=== PATIENT | male | born 1990 | race Caucasian/White ===

== ENCOUNTER 2017-06-25 01:25 | Emergency (ER) | payer OTHER ==
[~2017-06-25] VITALS: Ht 188 cm; Wt 166.0 kg
[~2017-06-25 01:25] MED LIST: CYCL-331 PO; TRAM50TA PO
--- NOTE | 2017-06-25 01:29 | ED.ADGEN ---
Past History Past Medical History: High Cholesterol, Hypertension, Other Past Surgical History: Other Smoking: Less than 1pk/day Alcohol Use: Rarely Drug Use: None Adult General Chief Complaint Chief Complaint ".. I was sitting around at work.. and got really hot.. and dizzy.. 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 Patient previously followed with Dr. Dunbar and was told at that time he needed to take blood pressure meds. She's never did follow-up. And has gained approximately 100 pounds since that visit approximately 5 years ago. Patient denies any fwku-day-leuqqjb meds use. No recent travel. No specific ill contacts. Review of Systems Review of Systems Constitutional: Denies fever or chills [] Eyes: Denies change in visual acuity, redness, or eye pain [] HENT: Denies nasal congestion or sore throat [] Respiratory: Denies cough or shortness of breath [] Cardiovascular: No additional information not addressed in HPI [] GI: Denies abdominal pain, nausea, vomiting, bloody stools or diarrhea [] : Denies dysuria or hematuria [] Musculoskeletal: Denies back pain or joint pain [] Integument: Denies rash or skin lesions [] Neurologic: Denies headache, focal weakness or sensory changes [] Endocrine: Denies polyuria or polydipsia [] All other systems were reviewed and found to be within normal limits, except as documented in this note. Family History Family History Hypertension Current Medications Current Medications Current Medications Medications (Trade) Dose Ordered Sig/Rangel Start Time Stop Time Status Last Admin Dose Admin Aspirin (Children'S Aspirin) 324 mg 1X ONCE 06/25/17 02:00 06/25/17 02:52 DC 06/25/17 03:08 324 MG Clonidine HCl (Catapres Tts-2) 1 patch 1X ONCE 06/25/17 02:00 06/25/17 02:52 DC 06/25/17 03:10 1 PATCH Clonidine HCl (Catapres) 0.1 mg 1X ONCE 06/25/17 02:00 06/25/17 02:52 DC 06/25/17 03:08 0.1 MG Sodium Chloride 1,000 ml @ 1,000 mls/hr Q1H 06/25/17 01:45 06/25/17 02:52 DC 06/25/17 03:07 1,000 MLS/HR Allergies Allergies Allergies Coded Allergies Type Severity Reaction Last Updated Verified Cefaclor Allergy Severe Unknown 09/04/13 Yes Uncoded Allergies Type Severity Reaction Last Updated Verified emycins Allergy Severe hives 09/04/13 Physical Exam Physical Exam Constitutional: Moderately acute distress, non-toxic appearance. [] HENT: Normocephalic, atraumatic, bilateral external ears normal, oropharynx moist, no oral exudates, nose normal. [] Eyes: PERRLA, EOMI, conjunctiva normal, no discharge. [] Neck: Normal range of motion, no tenderness, supple, no stridor. [] Cardiovascular:Heart rate regular rhythm, no murmur [] Lungs & Thorax: Bilateral breath sounds clear to auscultation [] Abdomen: Bowel sounds normal, soft, no tenderness, no masses, no pulsatile masses. Morbid obesity Skin: Warm, dry, no erythema, no rash. [] Back: No tenderness, no CVA tenderness. [] Extremities: No tenderness, no cyanosis, no clubbing, ROM intact, ankle edema. [ ] Neurologic: Alert and oriented X 3, normal motor function, normal sensory function, no focal deficits noted. [] Psychologic: Affect anxious, judgement normal, mood normal. [] Current Patient Data Vital Signs Vital Signs Date Time Temp Pulse Resp B/P (MAP) Pulse Ox O2 Delivery O2 Flow Rate FiO2 06/25/17 04:30 74 18 139/64 (89) 98 Room Air 06/25/17 01:41 98.3 Lab Results Laboratory Tests Test 06/25/17 01:55 06/25/17 02:08 06/25/17 02:10 06/25/17 04:35 White Blood Count 14.7 x10^3/uL (4.0-11.0) H Red Blood Count 5.05 x10^6/uL (4.30-5.70) Hemoglobin 14.3 g/dL (13.0-17.5) Hematocrit 42.4 % (39.0-53.0) Mean Corpuscular Volume 84 fL (79-100) Mean Corpuscular Hemoglobin 28 pg (25-35) Mean Corpuscular Hemoglobin Concent 34 g/dL (31-37) Red Cell Distribution Width 14.8 % (11.5-14.5) H Platelet Count 298 x10^3/uL (140-400) Neutrophils (%) (Auto) 69 % (31-73) Lymphocytes (%) (Auto) 24 % (24-48) Monocytes (%) (Auto) 5 % (0-9) Eosinophils (%) (Auto) 2 % (0-3) Basophils (%) (Auto) 1 % (0-3) Neutrophils # (Auto) 10.2 x10^3uL (1.8-7.7) H Lymphocytes # (Auto) 3.5 x10^3/uL (1.0-4.8) Monocytes # (Auto) 0.7 x10^3/uL (0.0-1.1) Eosinophils # (Auto) 0.2 x10^3/uL (0.0-0.7) Basophils # (Auto) 0.1 x10^3/uL (0.0-0.2) Prothrombin Time 9.9 SEC (9.4-11.4) Prothrombin Time INR 1.0 (0.9-1.1) PTT 27 SEC (23-33) D-Dimer (Gisel) 0.33 mg/L (0.00-0.50) Sodium Level 141 mmol/L (136-145) Potassium Level 3.5 mmol/L (3.5-5.1) Chloride Level 103 mmol/L (98-107) Carbon Dioxide Level 26 mmol/L (21-32) Anion Gap 12 (6-14) Blood Urea Nitrogen 17 mg/dL (8-26) Creatinine 0.9 mg/dL (0.7-1.3) Estimated GFR (Cockcroft-Gault) 99.8 Glucose Level 93 mg/dL (70-99) Calcium Level 9.2 mg/dL (8.5-10.1) Magnesium Level 2.1 mg/dL (1.8-2.4) Total Bilirubin 0.3 mg/dL (0.2-1.0) Direct Bilirubin 0.1 mg/dL (0.0-0.2) Aspartate Amino Transferase (AST) 34 U/L (15-37) Alanine Aminotransferase (ALT) 74 U/L (16-63) H Alkaline Phosphatase 99 U/L (46-116) Creatine Kinase 210 U/L (39-308) Creatine Kinase MB (Mass) 1.4 ng/mL (0.0-3.6) Creatine Kinase MB Relative Index 0.7 % (0-4) Troponin I Quantitative < 0.017 ng/mL (0-0.055) ST-Wtb-R-Type Natriuretic Peptide 20 pg/mL (0-124) Total Protein 8.0 g/dL (6.4-8.2) Albumin 3.7 g/dL (3.4-5.0) Lipase 66 U/L (73-393) L Influenza Type A (Rapid) Negative (NEGATIVE) Influenza Type B (Rapid) Negative (NEGATIVE) Group A Streptococcus Rapid Negative (NEGATIVE) Urine Collection Type Unknown Urine Color Yellow Urine Clarity Clear Urine pH 5.0 Urine Specific [place] >=1.030 Urine Protein Neg (NEG-TRACE) Urine Glucose (UA) Neg mg/dL (NEG) Urine Ketones (Stick) Neg mg/dL (NEG) Urine Blood Neg (NEG) Urine Nitrite Neg (NEG) Urine Bilirubin Neg (NEG) Urine Urobilinogen Dipstick 0.2 mg/dL (0.2 mg/dL) Urine Leukocyte Esterase Neg (NEG) Urine RBC 0 /HPF (0-2) Urine WBC Rare /HPF (0-4) Urine Squamous Epithelial Cells Occ /LPF Urine Bacteria 0 /HPF (0-FEW) EKG EKG My interpretation of EKG shows a sinus tachycardia at 101 bpm does have findings of anterior lateral strain pattern.[] Radiology/Procedures Radiology/Procedures My interpretation of CXR shows no acute cardiopulmonary findings. No free air in the diaphragm.[] Course & Med Decision Making Course & Med Decision Making Pertinent Labs and Imaging studies reviewed. (See chart for details). Pt to follow up with current primary or Dr. Dunbar. Push fluids. Tylenol and Ibuprofen for discomfort. Wear Clonidine patch until follow up with Dr. Dunbar. Return if any concerns. [] Final Impression Final Impression 1. Dizzy[] 2. Accelerated Hypertension 3. Morbid Obesity 4. Leukocytosis 5. Viral Syndrome Problems: Dragon Disclaimer Dragon Disclaimer This electronic medical record was generated, in whole or in part, using a voice recognition dictation system. CLARENCE HARDING MD Jun 25, 2017 01:29
[2017-06-25] MEDS ORDERED: IV NORMAL SALINE 1,000ML 1,000 ML IV SCH (01:45)
[2017-06-25] MEDS ORDERED: ASPIRIN 81 MG TAB.CHEW PO ONE (02:00)
[2017-06-25] MEDS ORDERED: cloNIDine TTS-2 1 PATCH PATCH TD ONE (02:00)
[2017-06-25] MEDS ORDERED: cloNIDine HCL 0.1 MG TABLET PO ONE (02:00)
[2017-06-25 02:29] LABS: BASO # 0.1 x10^3/uL (0.0-0.2); BASO % 1 % (0-3); EOS # 0.2 x10^3/uL (0.0-0.7); EOS % 2 % (0-3); HEMATOCRIT 42.4 % (39.0-53.0); HEMOGLOBIN 14.3 g/dL (13.0-17.5); LYMPH # 3.5 x10^3/uL (1.0-4.8); LYMPH % 24 % (24-48); MEAN CORPUSCULAR HEMOGLOBIN 28 pg (25-35); MEAN CORPUSCULAR HGB CONC 34 g/dL (31-37); MEAN CORPUSCULAR VOLUME 84 fL (79-100); MONO # 0.7 x10^3/uL (0.0-1.1); MONO % 5 % (0-9); NEUT # 10.2 x10^3uL (1.8-7.7); NEUT % 69 % (31-73); PLATELET COUNT 298 x10^3/uL (140-400); RED BLOOD COUNT 5.05 x10^6/uL (4.30-5.70); RED CELL DISTRIBUTION WIDTH 14.8 % (11.5-14.5); WHITE BLOOD COUNT 14.7 x10^3/uL (4.0-11.0)
[2017-06-25 02:51] LABS: ALBUMIN 3.7 g/dL (3.4-5.0); CALCIUM 9.2 mg/dL (8.5-10.1); CREATININE 0.9 mg/dL (0.7-1.3); DIRECT BILIRUBIN 0.1 mg/dL (0.0-0.2); GFR 99.8; MAGNESIUM 2.1 mg/dL (1.8-2.4); POTASSIUM 3.5 mmol/L (3.5-5.1); TOTAL BILIRUBIN 0.3 mg/dL (0.2-1.0)
[2017-06-25 03:02] LABS: INFLUENZA A PATIENT NEGATIVE (NEGATIVE); INFLUENZA B PATIENT NEGATIVE (NEGATIVE)
[2017-06-25] MEDS ORDERED: CLON-276 PO (04:29)
[2017-06-25 04:30] VITALS: BP 139/64
--- NOTE | 2017-06-25 04:53 | EKG ---
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
[2017-06-25 05:00] LABS: CLARITY,URINE CLEAR; COLOR,URINE YELLOW
[2017-06-25 05:01] LABS: BACTERIA,URINE 0 /HPF (0-FEW); BILIRUBIN,URINE NEG (NEG); GLUCOSE,URINE NEG (NEG); NITRITE,URINE NEG (NEG); RBC,URINE 0 /HPF (0-2); SQUAMOUS EPITHELIAL CELL,UR OCC /LPF; UROBILINOGEN,URINE 0.2 mg/dL (0.2 mg/dL); WBC,URINE RARE /HPF (0-4)
--- NOTE | 2017-06-25 08:39 | RAD ---
Chest, 2 views, 06/25/2017: History: Dizziness, hypertension The heart size and pulmonary vascularity are normal. No pulmonary infiltrate is seen. There is a vague nodular opacity projected over the left lung laterally. There is no evidence of pleural fluid. IMPRESSION: 1. Possible left pulmonary nodule. 2. No acute infiltrates. Note: The findings were called to personnel in the [facility] ER at 8:37 AM on 06/25/2017.
== END 2017-06-25 04:45 | disposition home or self-care (01) ==
LOC: ER 01:25
DX: I10 Essential (primary) hypertension (principal); E66.01 Morbid (severe) obesity due to excess calories; D72.829 Elevated white blood cell count, unspecified; B34.9 Viral infection, unspecified; E78.00 Pure hypercholesterolemia, unspecified; F17.210 Nicotine dependence, cigarettes, uncomplicated; Z68.42 Body mass index [BMI] 45.0-49.9, adult; Z88.1 Allergy status to other antibiotic agents
CPT/HCPCS: 36415; 71046; 80048; 80076; 81001; 82553; 83690; 83735; 83880; 84443; 84484; 85025; 85379; 85610; 85730; 87070; 87804; 87880; 93005; 96360; 99285-25; J7030

== ENCOUNTER 2018-03-04 01:55 | Emergency (ER) | payer OTHER ==
[~2018-03-04] VITALS: Ht 185.4 cm; Wt 165.6 kg
[2018-03-04 01:55] VITALS: BP 153/69
[~2018-03-04 01:55] MED LIST changes: +CLON-276 PO
--- NOTE | 2018-03-04 02:28 | PHYS DOC ---
Adult General Chief Complaint Chief Complaint knee pain HPI HPI 27 years old male presented to the emergency department with left knee me pain after fall at the snf is able to move all direction able to walk Review of Systems Review of Systems Constitutional: Denies fever or chills [] Eyes: Denies change in visual acuity, redness, or eye pain [] HENT: Denies nasal congestion or sore throat [] Respiratory: Denies cough or shortness of breath [] Cardiovascular: No additional information not addressed in HPI [] GI: Denies abdominal pain, nausea, vomiting, bloody stools or diarrhea [] : Denies dysuria or hematuria [] Musculoskeletal: Denies back pain Integument: Denies rash or skin lesions [] Neurologic: Denies headache, focal weakness or sensory changes [] Endocrine: Denies polyuria or polydipsia [] All other systems were reviewed and found to be within normal limits, except as documented in this note. Allergies Allergies Allergies Coded Allergies Type Severity Reaction Last Updated Verified Cefaclor Allergy Severe Unknown 09/04/13 Yes Uncoded Allergies Type Severity Reaction Last Updated Verified emycins Allergy Severe hives 09/04/13 Physical Exam Physical Exam Constitutional: Well developed, well nourished, no acute distress, non-toxic appearance. [] HENT: Normocephalic, atraumatic, bilateral external ears normal, oropharynx moist, no oral exudates, nose normal. [] Eyes: PERRLA, EOMI, conjunctiva normal, no discharge. [] Neck: Normal range of motion, no tenderness, supple, no stridor. [] Cardiovascular:Heart rate regular rhythm, no murmur [] Lungs & Thorax: Bilateral breath sounds clear to auscultation [] Abdomen: Bowel sounds normal, soft, no tenderness, no masses, no pulsatile masses. [] Skin: Warm, dry, no erythema, no rash. [] Back: No tenderness, no CVA tenderness. [] Extremities: Minimal tenderness on the left knee tenderness, no cyanosis, no clubbing, ROM intact, no edema. [] Neurologic: Alert and oriented X 3, normal motor function, normal sensory function, no focal deficits noted. [] Psychologic: Affect normal, judgement normal, mood normal. [] EKG EKG [] Radiology/Procedures Radiology/Procedures [] Course & Med Decision Making Course & Med Decision Making Pertinent Labs and Imaging studies reviewed. (See chart for details) [] Final Impression Final Impression [] Problems: (1) Contusion of knee, left Qualifiers: Qualified Codes: S80.02XA - Contusion of left knee, initial encounter Dragon Disclaimer Dragon Disclaimer This electronic medical record was generated, in whole or in part, using a voice recognition dictation system. KEITH RIOS MD Mar 04, 2018 02:28
--- NOTE | 2018-03-04 08:02 | RAD ---
Left knee, 3 views, 03/04/2018: HISTORY: Fall, injury, pain No fracture or dislocation is identified. No joint effusion is evident. IMPRESSION: No acute left knee abnormality is detected. Electronically signed by: Rolo Dennison MD (03/04/2018 7:58 AM) [place]
== END 2018-03-04 03:00 | disposition home or self-care (01) ==
LOC: ER 01:55
DX: S80.02XA Contusion of left knee, initial encounter (principal); Z88.1 Allergy status to other antibiotic agents; W18.30XA Fall on same level, unspecified, initial encounter; Y93.89 Activity, other specified; Y92.149 Unspecified place in prison as the place of occurrence of the external cause; Y99.8 Other external cause status
CPT/HCPCS: 73564; 99283

== ENCOUNTER 2018-12-04 16:03 | Emergency (ER) | payer BC, OTHER ==
[~2018-12-04] VITALS: Ht 188 cm; Wt 172.4 kg
--- NOTE | 2018-12-04 16:51 | PHYS DOC ---
Past History Past Medical History: Anxiety, Arthritis, Hypertension (OTIS RUTH MD) Past Surgical History: Other (OTIS RUTH MD) Smoking: Less than 1pk/day Alcohol Use: None Drug Use: None (OTIS RUTH MD) Adult General Chief Complaint Chief Complaint: HYPERTENSION HPI HPI Patient is a 28-year-old male who is presenting with chief complaint of chest pressure felt sweaty and lightheaded he [facility] his blood pressure [facility] it was in the 180 range as high as 190 at one point took some rest really wasn't feeling better called came here for evaluation history of hypertension obesity. (OTIS RUTH MD) Review of Systems Review of Systems Constitutional: Denies fever or chills [] Eyes: Denies change in visual acuity, redness, or eye pain [] HENT: Denies nasal congestion or sore throat [] Respiratory: Denies cough or shortness of breath [] Cardiovascular: No additional information not addressed in HPI [] GI: Denies abdominal pain, nausea, vomiting, bloody stools or diarrhea [] : Denies dysuria or hematuria [] Musculoskeletal: Denies back pain or joint pain [] Integument: Denies rash or skin lesions [] Neurologic: Denies headache, focal weakness or sensory changes [] Endocrine: Denies polyuria or polydipsia [] All other systems were reviewed and found to be within normal limits, except as documented in this note. (OTIS RUTH MD) Current Medications Current Medications Current Medications Medications (Trade) Dose Ordered Sig/Rangel Start Time Stop Time Status Last Admin Dose Admin Aspirin (Children'S Aspirin) 324 mg 1X ONCE 12/04/18 16:45 12/04/18 16:46 UNV (OTIS RUTH MD) Allergies Allergies Allergies Coded Allergies Type Severity Reaction Last Updated Verified Cefaclor Allergy Severe Unknown 09/04/13 Yes Uncoded Allergies Type Severity Reaction Last Updated Verified emycins Allergy Severe hives 09/04/13 (OTIS RUTH MD) Physical Exam Physical Exam Constitutional: Well developed, over nourished, no acute distress, non-toxic appearance. [] HENT: Normocephalic, atraumatic, bilateral external ears normal, oropharynx moist, no oral exudates, nose normal. [] Eyes: PERRLA, EOMI, conjunctiva normal, no discharge. [] Neck: Normal range of motion, no tenderness, supple, no stridor. [] Cardiovascular:Heart rate regular rhythm, no murmur [] Lungs & Thorax: Bilateral breath sounds clear to auscultation [] Abdomen: Bowel sounds normal, soft, no tenderness, no masses, no pulsatile masses. [] Skin: Warm, dry, no erythema, no rash. [] Back: No tenderness, no CVA tenderness. [] Extremities: No tenderness, no cyanosis, no clubbing, ROM intact, no edema. [] Neurologic: Alert and oriented X 3, normal motor function, normal sensory function, no focal deficits noted. [] Psychologic: Affect normal, judgement normal, mood normal. [] (OTIS RUTH MD) Current Patient Data Vital Signs Vital Signs Date Time Temp Pulse Resp B/P (MAP) Pulse Ox O2 Delivery O2 Flow Rate FiO2 12/04/18 16:05 98.2 102 22 94 Room Air (OTIS RUTH MD) EKG EKG []EKG shows a normal sinus rhythm there is borderline st segemnt abnormality inferior no stemi. this looks slightly different than ekg dated 06/25/17 (OTIS RUTH MD) Radiology/Procedures Radiology/Procedures [] (OTIS RUTH MD) Radiology/Procedures [address] [address] IMAGING REPORT Signed PATIENT: CODY BOBBY ACCOUNT: [id number] : 1990 LOCATION: ER AGE: 28 SEX: M EXAM STATUS: REG ER ORD. PHYSICIAN: OTIS RUTH MD REASON: CHEST PAIN PROCEDURE: CHEST AP ONLY Study: CHEST AP ONLY Indication: Chest pain. Comparison: 06/25/2017 Findings: Unremarkable cardiomediastinal silhouette and hilar structures. The lungs are unremarkable. No gross osseous abnormality. No free air seen under the diaphragm. Impression: Unremarkable radiographic appearance of the chest. Electronically signed by: OLGA BARKER MD (12/04/2018 7:09 PM) [facility] DICTATED AND SIGNED BY: OLGA BARKER MD DATE: 12/04/181908 CC: CLARENCE HARDING MD; OTIS RUTH MD; PCP,UNKNOWN ~ Impressions: 1. Accelerated hypertension 2.Morbid obesity 3. Mild leukocytosis 13.6 4. Viral syndrome (CLARENCE HARDING MD) Course & Med Decision Making Course & Med Decision Making Pertinent Labs and Imaging studies reviewed. (See chart for details) []heart score h 0 e 1 a 0 r 1 t 0 28-year-old male with history of obesity and hypertension is presenting with elevated blood pressure as well as some chest pressure and lightheadedness while at [facility] around 3 PM. Currently looking a little better blood pressures in the 140s says he is feeling somewhat better. This point time plan for labwork as well as imaging chest x-ray and serial troponins to rule out acute coronary syndrome likely will be a candidate for discharge home. care to [facility] pending repeat trop and clinical course. (OTIS RUTH MD) Course & Med Decision Making Patient to stop smoking. Patient take lisinopril as directed. Patient get adequate rest. Patient follow-up primary care. Patient take a daily aspirin. Patient return if any concerns. Patient currently elects to be discharged. Do suspect there may be a allergy or viral component of his presentation (CLARENCE HARDING MD) Dragon Disclaimer Dragon Disclaimer This electronic medical record was generated, in whole or in part, using a voice recognition dictation system. (OTIS RUTH MD) Departure Departure: Impression: Primary Impression: Hypertension Disposition: HOME/RESIDENCE PRIOR TO ADM Condition: STABLE Referrals: PCP,UNKNOWN (PCP) Dragon Disclaimer This chart was dictated in whole or in part using Voice Recognition software in a busy, high-work load, and often noisy Emergency Department environment. It may contain unintended and wholly unrecognized errors or omissions. (CLARENCE HARDING MD) Dragon Disclaimer This chart was dictated in whole or in part using Voice Recognition software in a busy, high-work load, and often noisy Emergency Department environment. It may contain unintended and wholly unrecognized errors or omissions. (OTIS RUTH MD) OTIS RUTH MD Dec 04, 2018 16:51 CLARENCE HARDING MD Dec 04, 2018 19:51
[2018-12-04] MEDS ORDERED: ASPIRIN 81 MG TAB.CHEW PO ONE (17:00)
[2018-12-04 17:19] LABS: BASO # 0.1 x10^3/uL (0.0-0.2); BASO % 1 % (0-3); EOS # 0.7 x10^3/uL (0.0-0.7); EOS % 5 % (0-3); HEMATOCRIT 42.7 % (39.0-53.0); HEMOGLOBIN 14.2 g/dL (13.0-17.5); LYMPH # 2.6 x10^3/uL (1.0-4.8); LYMPH % 19 % (24-48); MEAN CORPUSCULAR HEMOGLOBIN 28 pg (25-35); MEAN CORPUSCULAR HGB CONC 33 g/dL (31-37); MEAN CORPUSCULAR VOLUME 84 fL (79-100); MONO # 0.9 x10^3/uL (0.0-1.1); MONO % 7 % (0-9); NEUT # 9.4 x10^3uL (1.8-7.7); NEUT % 69 % (31-73); PLATELET COUNT 283 x10^3/uL (140-400); RED BLOOD COUNT 5.06 x10^6/uL (4.30-5.70); WHITE BLOOD COUNT 13.6 x10^3/uL (4.0-11.0)
[2018-12-04 17:31] LABS: ALBUMIN 3.6 g/dL (3.4-5.0); CALCIUM 9.2 mg/dL (8.5-10.1); GFR 87.7; POTASSIUM 3.8 mmol/L (3.5-5.1); TOTAL BILIRUBIN 0.5 mg/dL (0.2-1.0); TOTAL PROTEIN 7.3 g/dL (6.4-8.2)
[2018-12-04 19:19] VITALS: BP 113/64
--- NOTE | 2018-12-04 19:31 | RAD ---
Study: CHEST AP ONLY Indication: Chest pain. Comparison: 06/25/2017 Findings: Unremarkable cardiomediastinal silhouette and hilar structures. The lungs are unremarkable. No gross osseous abnormality. No free air seen under the diaphragm. Impression: Unremarkable radiographic appearance of the chest. Electronically signed by: OLGA BARKER MD (12/04/2018 7:09 PM) [facility]
--- NOTE | 2018-12-04 19:31 | EKG ---
[address] [address] Test Date: 2018-12-04 Test Time: 16:21:27 Pat Name: CODY BOBBY Department: Room: Gender: M Gis Consultant: : 1990 Requested By: OTIS RUTH Order Number: [id number] Reading MD: Measurements Intervals [place] Rate: 95 P: 26 ID: [id number] QRS: 50 QRSD: 112 T: 12 QT: 370 QTc: 468 Interpretive Statements SINUS RHYTHM LEFT ATRIAL ABNORMALITY ABNORMAL ECG RI6.01 Compared to ECG 06/30/2015 11:36:46 Atrial abnormality now present Left-axis deviation no longer present
== END 2018-12-04 19:45 | disposition home or self-care (01) ==
LOC: ER 16:03
DX: I10 Essential (primary) hypertension (principal); E66.01 Morbid (severe) obesity due to excess calories; D72.829 Elevated white blood cell count, unspecified; B34.9 Viral infection, unspecified; F41.9 Anxiety disorder, unspecified; M19.90 Unspecified osteoarthritis, unspecified site; F17.210 Nicotine dependence, cigarettes, uncomplicated; Z68.42 Body mass index [BMI] 45.0-49.9, adult; Z88.1 Allergy status to other antibiotic agents
CPT/HCPCS: 36415; 71045; 80053; 84484; 85025; 93005; 99285

== ENCOUNTER 2020-06-23 23:15 | Emergency (ER) | payer OTHER, BC ==
[~2020-06-23] VITALS: Ht 188 cm; Wt 150.0 kg
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
[2020-06-23] MEDS ORDERED: AMOX1TAB61 PO (23:43)
[2020-06-24] MEDS ORDERED: AMOXICILLIN/K CLAV 875/125MG TABLET. PO ONE (00:15)
== END 2020-06-24 00:04 | disposition home or self-care (01) ==
LOC: ER 23:15
DX: S40.011A Contusion of right shoulder, initial encounter (principal); F41.9 Anxiety disorder, unspecified; M19.90 Unspecified osteoarthritis, unspecified site; I10 Essential (primary) hypertension; F17.200 Nicotine dependence, unspecified, uncomplicated; Z88.1 Allergy status to other antibiotic agents; Y04.1XXA Assault by human bite, initial encounter; Y93.89 Activity, other specified; Y92.89 Other specified places as the place of occurrence of the external cause; Y99.8 Other external cause status
CPT/HCPCS: 99283

== ENCOUNTER 2020-08-23 01:21 | Emergency (ER) | payer OTHER, BC ==
[~2020-08-23] VITALS: Ht 188 cm; Wt 170.0 kg
[2020-08-23 01:21] VITALS: BP 138/84
[~2020-08-23 01:21] MED LIST changes: +AMOX1TAB61 PO
--- NOTE | 2020-08-23 02:34 | PHYS DOC ---
Past History Past Medical History: Anxiety, Arthritis, Hypertension Past Surgical History: Other Smoking: Less than 1pk/day Alcohol Use: None Drug Use: None General Adult EDM: Chief Complaint: Left ankle/foot pain and right knee pain HPI: HPI: 30-year-old male presents with report of left ankle and lateral foot pain and swelling after mechanical slip and fall off of a curb. Patient reports rolling his ankle. Patient reports pain with any range of motion or bearing weight. Patient also came down onto right anterior knee and right palm with some discomfort to these areas. Patient does report some abrasion to right anterior knee. Denies head trauma or neck pain. Denies laceration. Patient does report taking ibuprofen prior to arrival. Review of Systems: Review of Systems: Constitutional: Denies fever or chills Eyes: Denies redness or eye pain HENT: Denies nasal congestion or sore throat Respiratory: Denies cough or shortness of breath Cardiovascular: Denies chest pain or palpitations GI: Denies abdominal pain, nausea, or vomiting : Denies dysuria or hematuria Musculoskeletal: Reports right knee pain, left ankle, and left foot pain and swelling Integument: Reports abrasion to right knee; denies laceration Neurologic: Denies headache, focal weakness or sensory changes Complete systems were reviewed and found to be within normal limits, except as documented in this note. Current Medications: Current Meds: Current Medications Medications (Trade) Dose Ordered Sig/[facility] Start Time Stop Time Status Last Admin Dose Admin Acetaminophen (Tylenol) 500 mg 1X ONCE 08/23/20 02:30 08/23/20 02:31 Allergies: Allergies: Allergies Coded Allergies Type Severity Reaction Last Updated Verified cefaclor Allergy Severe Unknown 09/04/13 Yes erythromycin base Allergy Severe hives 08/23/20 Yes Physical Exam: PE: Constitutional: Well developed, obese, no acute distress, non-toxic appearance HENT: Normocephalic, atraumatic Eyes: Conjunctiva normal, no discharge Neck: Normal range of motion, supple Lungs & Thorax: No respiratory distress, equal chest rise and fall Skin: Warm, dry, no erythema, abrasion noted to right anterior knee, contusion noted to right palm Extremities: Right knee: anterior tenderness on palpation, overlying abrasion, anterior drawer negative; Left foot and ankle: tenderness to lateral malleolus with mild edema, DP and PT +2, no deformity noted, tenderness to left 5th metatarsal; right hand: palmar contusion noted, radial pulse +2, full ROM about fingers, CR < 2 sec Neurologic: Alert and oriented X 3, no focal deficits noted Psychologic: Affect normal, judgment normal EKG: EKG: [] Radiology/Procedures: Radiology/Procedures: PROCEDURE: ANKLE LEFT 3V & FOOT LEFT 3V & KNEE RIGHT 4V 4 view right knee HISTORY: Pain status post fall AP lateral oblique and tunnel views The visualized osseous structures appear normal. IMPRESSION: No acute findings. End impression 3 view left foot: AP lateral oblique views The visualized osseous structures appear normal. IMPRESSION: No acute findings. End impression 3 view left ankle: AP lateral oblique views The tibiotalar relationship is normal. The visualized osseous structures appear normal. IMPRESSION: No acute findings. Electronically signed by: Charlie Lopez III, MD (08/23/2020 2:42 AM) [facility] Heart Score: C/O Chest Pain: N/A Course & Med Decision Making: Course & Med Decision Making Pertinent Imaging studies reviewed. (See chart for details) Patient presents with left ankle/foot pain and right knee pain. X-rays obtained without acute fracture or dislocation. Ice applied. Preston wraps provided. Crutches also given. Patient stable for discharge with outpatient follow-up with PCP/orthopedics. Orthopedic referral provided. Discussed findings and plan with patient, who acknowledges understanding and agreement. Danny Disclaimer: Danny Disclaimer: This electronic medical record was generated, in whole or in part, using a voice recognition dictation system. Splinting Splinting #1: Location: Right knee Pre-Made Type: PRESTON bandage Pre-Proc Neuro Vasc Exam: normal Post-Proc Neuro Vasc Exam: normal, unchanged from pre-exam Splinting #2: Location: Right hand Pre-Made Type: PRESTON bandage Pre-Proc Neuro Vasc Exam: normal Post-Proc Neuro Vasc Exam: normal, unchanged from pre-exam Splinting #3: Location: Left foot and ankle Pre-Made Type: PRESTON bandage Pre-Proc Neuro Vasc Exam: normal Post-Proc Neuro Vasc Exam: normal, unchanged from pre-exam Departure Departure: Impression: Primary Impression: Left ankle sprain Qualified Codes: S93.402A - Sprain of unspecified ligament of left ankle, initial encounter Additional Impressions: Contusion of right hand Qualified Codes: S60.221A - Contusion of right hand, initial encounter Contusion of right knee Qualified Codes: S80.01XA - Contusion of right knee, initial encounter Sprain of foot, left Qualified Codes: S93.602A - Unspecified sprain of left foot, initial encounter Abrasion of knee, right Qualified Codes: S80.211A - Abrasion, right knee, initial encounter Disposition: 01 HOME / SELF CARE / HOMELESS Condition: STABLE Referrals: NATALIA SCHWARTZ (PCP) CHARLIE EWING MD Patient Instructions: Abrasion, [id number], Ankle Sprain, [id number], Contusion, [id number], Crutch Use, [id number], Foot Sprain, Hand Contusion, [id number], Knee Wraps (Elastic Bandage) and RICE Additional Instructions: ICE area of discomfort 20 min on then leave off next 20 mins. Repeat several times daily for next few days. Use over the counter Tylenol and/or Ibuprofen for pain or discomfort. KULWANT ALEJANDRA DO August 23, 2020 02:34
--- NOTE | 2020-08-23 02:45 | RAD ---
4 view right knee HISTORY: Pain status post fall AP lateral oblique and tunnel views The visualized osseous structures appear normal. IMPRESSION: No acute findings. End impression 3 view left foot: AP lateral oblique views The visualized osseous structures appear normal. IMPRESSION: No acute findings. End impression 3 view left ankle: AP lateral oblique views The tibiotalar relationship is normal. The visualized osseous structures appear normal. IMPRESSION: No acute findings. Electronically signed by: Conor Lopez III, MD (08/23/2020 2:42 AM) [facility]
[2020-08-23] MEDS: ACETAMINOPHEN 500 MG TABLET PO ONE (03:05)
== END 2020-08-23 03:20 | disposition home or self-care (01) ==
LOC: ER 01:21
DX: S93.402A Sprain of unspecified ligament of left ankle, initial encounter (principal); S93.602A Unspecified sprain of left foot, initial encounter; S60.221A Contusion of right hand, initial encounter; S80.01XA Contusion of right knee, initial encounter; F41.9 Anxiety disorder, unspecified; M19.90 Unspecified osteoarthritis, unspecified site; I10 Essential (primary) hypertension; F17.200 Nicotine dependence, unspecified, uncomplicated; Z88.1 Allergy status to other antibiotic agents; W01.0XXA Fall on same level from slipping, tripping and stumbling without subsequent striking against object, initial encounter; Y93.89 Activity, other specified; Y92.89 Other specified places as the place of occurrence of the external cause; Y99.8 Other external cause status
CPT/HCPCS: 73562; 73610; 73630; 99284